=== PATIENT | female | born 1950 | race Caucasian/White ===

== ENCOUNTER 2024-01-16 13:00 | Emergency (ER) | payer BC, MEDICARE ==
[2024-01-16 13:09] VITALS: BP 141/88; PULSE 79
[2024-01-16] MEDS: Lidocaine 2% 5 ML SDV INJECT ONE (13:25)
[2024-01-16] MEDS: Bacitracin/Neomycin/Polymyxin B Oint 0.9 GM U/D Packet TOP ONE (13:25)
[2024-01-16] MEDS: Tranexamic Acid 1,000 MG/10 ML Vial TOP ONE (13:25)
== END 2024-01-16 13:58 | disposition home or self-care (01) ==
LOC: CC.ED 13:00
DX: S61.001A Unspecified open wound of right thumb without damage to nail, initial encounter (principal); Z88.0 Allergy status to penicillin; Z88.8 Allergy status to other drugs, medicaments and biological substances; Z88.1 Allergy status to other antibiotic agents; W26.8XXA Contact with other sharp object(s), not elsewhere classified, initial encounter
CPT/HCPCS: 73140-F5; 99283; A9270-GY; J3490